=== PATIENT | male | born 1970 | race Caucasian/White ===

== ENCOUNTER 2018-07-26 11:37 | Day surgery (SDC) | payer OTHER ==
[2018-07-26] MEDS ORDERED: ceFAZolin 2 GM/DEXTROSE 100 ML IV ONE (11:55)
[2018-07-26] MEDS ORDERED: LR 1,000 ML IV ONE (11:56)
--- NOTE | 2018-07-26 12:02 | POSTANESTH ---
Post Anesthetic Evaluation Cardiovascular Status: Normal, Stable Respiratory Status: Normal, Stable Level of Consciousness/Mental Status: Can Participate in Eval, Alert and Oriented Pain Control: Adequate, Prn Tx Ordered Nausea/Vomiting Control: Adequate, Prn Tx Ordered Complications Possibly Related to Anesthesia: None Noted
--- NOTE | 2018-07-26 12:04 | PDANEPAE ---
ANE History of Present Illness 47 yo male with recurrent L hernia. ANE Past Medical History - Cardiovascular History Hx Hypertension: No Hx Arrhythmias: No Hx Chest Pain: No Hx Coronary Artery / Peripheral Vascular Disease: No Hx CHF / Valvular Disease: No Hx Palpitations: No - Pulmonary History Hx COPD: No Hx Asthma/Reactive Airway Disease: Yes Hx Recent Upper Respiratory Infection: No Hx Oxygen in Use at Home: No Hx Sleep Apnea: No Sleep Apnea Screening Result - Last Documented: Positive Pulmonary History Comment: BRENDAN triggers only. asthma as a child but not an issue as an adult - Neurologic History Hx Cerebrovascular Accident: No Hx Seizures: No Hx Dementia: No - Endocrine History Hx Diabetes: No Hypothyroid: No Hyperthyroid: No Obesity: no - Renal History Hx Renal Disorders: No - Liver History Hx Hepatic Disorders: No - Neurological & Psychiatric Hx Hx Neurological and Psychiatric Disorders: No - Cancer History Hx Cancer: No Cancer History Comment: basal cell skin CA removed - Congenital Disorder History Hx Congenital Disorders: No - GI History Hx Gastrointestinal Disorders: No - Other Health History Other Health History: denies - Chronic Pain History Chronic Pain: Yes (back pain, siatica) - Surgical History Prior Surgeries: hernia repair x2. oral surgery. basal cell CA removal ANE Review of Systems Review of systems is: negative Review of Systems: - Exercise capacity METS (RN): 4 METS ANE Patient History - Allergies Allergies/Adverse Reactions: No Known Allergies Allergy (Verified 07/18/18 11:47) - Anes Hx Anes Hx: no prior problems - Smoking Hx Smoking Status: Never smoked - Alcohol Use Alcohol Use: Occasionally - Family Anes Hx Family Anes Hx: neg - N/A Family Hx Anesthesia Complications: none ANE Labs/Vital Signs - Vital Signs Vital Signs: reviewed preoperatively; see RN documention for details Height: 172.72 cm Weight: 72.575 kg ANE Physical Exam - Airway Neck exam: FROM Mallampati Score: Class 2 Mouth exam: normal dental/mouth exam - Pulmonary Pulmonary: clear to auscultation - Cardiovascular Cardiovascular: regular rate and rhythym - ASA Status ASA Status: II ANE Anesthesia Plan Anesthesia Plan: general endotracheal anesthesia
[2018-07-26] MEDS ORDERED: BUPIVACAINE 0.25% 30 ML SDV ONE (12:54)
[2018-07-26] MEDS ORDERED: DEXAMETHASONE 4 MG/ML VIAL ONE (13:05)
[2018-07-26] MEDS ORDERED: LIDOCAINE 2% 2 ML INJ ONE (13:05)
[2018-07-26] MEDS ORDERED: PROPOFOL 200 MG/20 ML VIAL ONE (13:05)
[2018-07-26] MEDS ORDERED: ROCURONIUM 50 MG/5 ML VIAL ONE (13:05)
[2018-07-26] MEDS ORDERED: fentaNYL 100 MCG/2 ML INJ ONE ×2 (13:05→14:05)
--- NOTE | 2018-07-26 13:14 | PDHPUP ---
History & Physical Update H&P update statement: This history and physical update is based on an assessment of the patient which was completed after admission or registration (within 24 hours), but prior to the surgery/procedure. H&P update: H&P reviewed & patient examined, no change in patient's condition since H&P completed (symptomatic on both sides/no palpable hernia on the right side (previoulsy repaired with mesh))
[2018-07-26] MEDS ORDERED: ONDANSETRON 4 MG/2 ML VIAL ONE (13:50)
[2018-07-26] MEDS ORDERED: KETOROLAC 30 MG/1 ML SDV ONE (13:50)
[2018-07-26] MEDS ORDERED: fentaNYL 100 MCG/2 ML INJ IVP PRN (14:50)
[2018-07-26] MEDS ORDERED: ALBUTEROL 3 ML DEYVIAL IH PRN (14:50)
[2018-07-26] MEDS ORDERED: METOCLOPRAMIDE 10 MG/2 ML VIAL IVP PRN (14:50)
[2018-07-26] MEDS ORDERED: ACETAMINOPHEN 500 MG TAB PO PRN (14:50)
[2018-07-26] MEDS ORDERED: NALOXONE HCL 0.4 MG/ML INJ IVP PRN ×2 (14:50)
[2018-07-26] MEDS ORDERED: HYDROCODONE/APAP 5/325 TAB PO PRN (14:50)
[2018-07-26] MEDS ORDERED: LR 500 ML IV PRN (14:50)
[2018-07-26] MEDS ORDERED: HYDROCODONE/APAP 5/325 TAB ONE (14:59)
[2018-07-26] MEDS ORDERED: OXYCODONE/APAP 5/325 TAB PO PRN (15:00)
[2018-07-26] MEDS ORDERED: ONDANSETRON DISINTEGRATING 4 MG TAB PO PRN (15:00)
--- NOTE | 2018-07-26 15:04 | POSTOPPROG ---
Post Op Note Date of Operation: 07/26/18 Surgeon: Junior Piña (, FACS) Anesthesiologist: Alta Lawson DO Anesthesia: GET(General Endotracheal) Pre-op Diagnosis: LIH, possible recurrent RIH Post-op Diagnosis: bilateral inguinal hernias Findings: indirect hernia left/direct inguinal hernia right Inf/Abcess present in the surg proc area at time of surgery?: No
--- NOTE | 2018-07-26 16:10 | GOP ---
DATE OF OPERATION: 07/26/2018 SURGEON: Junior Piña MD, FACS ANESTHESIA: General endotracheal. ANESTHESIOLOGIST: Alta Morales MD PREOPERATIVE DIAGNOSIS: 1. Left inguinal hernia. 2. Possible right inguinal hernia. POSTOPERATIVE DIAGNOSIS: Indirect left inguinal hernia and recurrent direct right inguinal hernia. PROCEDURE PERFORMED: Laparoscopic bilateral preperitoneal inguinal herniorrhaphy. FINDINGS: Indirect hernia on the left. A small direct inguinal hernia on the right at the site of prior repair. ESTIMATED BLOOD LOSS: 10 cc or less. DESCRIPTION OF PROCEDURE: After informed consent was obtained, the patient was brought to the operating room and placed under general anesthesia. The abdomen was prepped and draped in the usual fashion. Before proceeding, a time-out and identification of the patient was performed. 0.25% Marcaine was used to infiltrate all incision sites. A previous infraumbilical incision was incised transversely and dissection carried down to the midline fascia below the umbilical stalk. A transverse incision was made in the fascia and a plane of dissection entered posterior to the left rectus sheath and posterior to the left rectus muscle. A balloon dissector was introduced and advanced to the pubis. This was deployed under direct laparoscopic visualization, deflated and removed. A structural balloon port was introduced and advanced, deployed in the preperitoneal space and a pneumopreperitoneum established with CO2 gas to a pressure of 15 mmHg. A 0- degree scope was introduced and the preperitoneal space was visualized. Additional 5 mm ports were placed in the midline under direct visualization. This allowed introduction of atraumatic grasping forceps and the preperitoneal space was dissected, identifying the epigastric vessels on the left side and a kind of a chronic appearing indirect hernia on the left. This was reduced with a hand over hand dissection technique. There was no evidence of direct or femoral canal hernia. The peritoneum lateral to the internal ring was cleared and reflected posteriorly. A 3D max mesh (medium left) was brought onto the field and passed through the camera port and positioned over the inguinal floor covering the femoral canal of the inguinal floor as well as the internal ring. This was secured medially to Herbie ligament with 2 interrupted AbsorbaTacks. The right inguinal floor was dissected at the site of a prior hernia repair and there was some scar tissue in the preperitoneal space. This was taken down carefully with some bleeding due to the blunt dissection. This was controlled with topical Surgicel. The patient had a prior anterior mesh repair and had a small medial recurrence. The properitoneal fat was reduced from this. There were no bowel contents or incarceration. There was no evidence of femoral canal or indirect hernia noted. A 3D max mesh (medium right) was passed through the camera port and positioned over the inguinal floor, secured to Herbie ligament with 2 firings of the AbsorbaTack. The pneumoperitoneum was evacuated allowing the peritoneum to come in contact with the mesh holding it firmly in place. The remaining ports were removed and hemostasis appeared secure. The fascia was closed with interrupted 0 Vicryl sutures. Subcutaneous tissues were closed with 3-0 Vicryl suture and the skin of all incisions was closed with 4-0 Monocryl suture in a subcuticular fashion. Mastisol, Steri- Strips and sterile dressings were applied. Needle, sponge, and instrument counts were correct. COMPLICATIONS: None. /[id number]/MODL MTDD
[2018-07-26 17:26] VITALS: BP 101/67
== END 2018-07-26 17:53 | disposition home or self-care (01) ==
LOC: FSGY 11:37
PROVIDERS: ATTEND Surgery
PROC: 0YUA4JZ Supplement Bilateral Inguinal Region with Synthetic Substitute, Percutaneous Endoscopic Approach (ICD-10-PCS; principal; 2018-07-26 13:00)
DX: K40.21 Bilateral inguinal hernia, without obstruction or gangrene, recurrent (principal); G47.33 Obstructive sleep apnea (adult) (pediatric); Z85.820 Personal history of malignant melanoma of skin
CPT/HCPCS: C1727; C1781; J0690; J1100; J1885; J2405; J2704; J3010